=== PATIENT | male | born 1950 | race Caucasian/White ===

== ENCOUNTER 2016-09-17 11:45 | Inpatient (IN) | payer OTHER ==
[2016-09-17] MEDS ORDERED: SODIUM CHLORIDE 1,000 ML IV ONE (12:43)
--- NOTE | 2016-09-17 13:09 | PDOC ---
History of Present Illness - General History Source: Patient - History of Present Illness Initial Comments: 09/17/16 13:13 The patient is a year-old man with a significant past medical history of hypertension, hypercholesterolemia, coronary artery disease, atrial fibrillation (on Pradaxa) status post 2 stents and recent shingles diagnosis who was sent to the emergency department by his primary care physician, Dr. Lindsay Huston to rule ot possible Zoster. No fever, chills. Patient states that his symptoms started on August 17 when he noticed a rash on the back of his left leg with associated nerve shooting pain. Patient sought evaluation with a Farm Management Teacher, who diagnosed him with Zoster and started him on valtrex. He admits compliance with Valtrex and his symptoms resolved. He stated that a few weeks ago, he experienced similar symptoms of nerve pain down his left leg. He denies any rash. He states that for the past couple of weeks, his symptoms have been intermittent and occasionally on both legs with associated weakness to the point where he drags his legs. He now states that his shoulders, arms and hands feel weak and are painful with minima movement. No fall, trauma. No associated headache, changes in strength and sensations to his extremities, lightheadedness , dizziness, palpitations, abdominal pain, nausea, vomiting, diarrhea. <Anjali Monique - Last Filed: 09/17/16 14:11> <Kemar Rodriguez - Last Filed: 09/17/16 14:52> - General Chief Complaint: Pain Stated Complaint: (PCP SENT) ADMIT, R/O ZOSTER MYELITIS Time Seen by Provider: 09/17/16 12:09 Past History <Anjali Monique - Last Filed: 09/17/16 14:11> - Past Medical History Cardiac Disorders: Yes (afib, CAD, 2 Stents) HTN: Yes - Surgical History Cardiac Surgery: Yes (2 stents) - Psycho/Social/Smoking Cessation Hx Suicidal Ideation: No Smoking History: Unknown if ever smoked Information on smoking cessation initiated: No Hx Alcohol Use: No Drug/Substance Use Hx: No Substance Use Type: None <Kemar Rodriguez - Last Filed: 09/17/16 14:52> - Past Medical History Allergies/Adverse Reactions: Allergies Allergy/AdvReac Type Severity Reaction Status Date / Time No Known Allergies Allergy Verified 09/17/16 11:54 Home Medications: Ambulatory Orders Aspirin [ASA -] 81 mg PO DAILY 09/17/16 Atorvastatin Calcium [Lipitor] 10 mg PO HS 09/17/16 Clopidogrel Bisulfate [Plavix -] 75 mg PO DAILY 09/17/16 Colesevelam HCl [Welchol (Nf)] 3,750 mg PO DAILY 09/17/16 Hydrochlorothiazide [Hctz -] 12.5 mg PO DAILY 09/17/16 Lisinopril [Prinivil] 5 mg PO DAILY 09/17/16 Metoprolol Tartrate [Lopressor -] 25 mg PO BID 09/17/16 Review of Systems - Review of Systems Constitutional: No: Chills, Fever HEENTM: No: Recent change in vision Respiratory: No: Shortness of Breath Cardiac (ROS): No: Chest Pain ABD/GI: No: Vomiting Musculoskeletal: Yes: Joint Pain, Muscle Pain Integumentary: Yes: Rash Neurological: No: Headache, Seizure All Other Systems: Reviewed and Negative <Kemar Rodriguez - Last Filed: 09/17/16 14:52> *Physical Exam - Vital Signs Last Vital Signs Temp Pulse Resp BP Pulse Ox 98.1 F 68 17 135/77 99 09/17/16 11:52 09/17/16 11:52 09/17/16 11:52 09/17/16 11:52 09/17/16 11:52 - Physical Exam Comments: 09/17/16 13:13 GENERAL: The patient is awake, alert, and fully oriented, in no acute distress. HEAD: Normal with no signs of trauma. EYES: Pupils equal, round and reactive to light, extraocular movements intact, sclera anicteric, conjunctiva clear with no pallor. ENT: Ears normal, nares patent, oropharynx clear without exudates. Moist mucous membranes. NECK: Normal range of motion, supple without lymphadenopathy, JVD, or masses. LUNGS: Breath sounds equal, clear to auscultation bilaterally. No wheeze/ crackles. HEART: Regular rate and rhythm, normal S1 and S2 without murmur or rub. ABDOMEN: Soft/nontender/nondistended. BS wnl. No guarding or rebound. No palpable masses. No hepatosplenomegaly. EXTREMITIES: Normal range of motion, no edema. No clubbing or cyanosis. No cords, erythema, or tenderness. NEUROLOGICAL: Cranial nerves II through XII grossly intact. 5/5 strength in all joints but limited by pain. Normal speech. PSYCH: Normal mood, normal affect. SKIN:There is a residual rash on the posterior aspect of the right thigh. <Anjali Monique - Last Filed: 09/17/16 14:11> - Vital Signs Last Vital Signs Temp Pulse Resp BP Pulse Ox 98.1 F 68 17 135/77 99 09/17/16 11:52 09/17/16 11:52 09/17/16 11:52 09/17/16 11:52 09/17/16 11:52 <Kemar Rodriguez - Last Filed: 09/17/16 14:52> Heart Score/ECG Review #1 ECG reviewed & interpreted by me at: 13:21 General ECG Interpretation: Sinus Rhythm, Normal Rate (74), Normal Intervals, No acute ischemic changes <Kemar Rodriguez - Last Filed: 09/17/16 14:52> ED Treatment Course - LABORATORY CBC & Chemistry Diagram: 09/17/16 13:31 09/17/16 13:31 - RADIOLOGY Radiograph Interpretation: 09/17/16 14:11 EXAM: RAD/CHEST X-RAY PORTABLE IMPRESSION: A rotated and lordotic AP portable view of the chest shows normal sized heart with normal vascularity. The lung grhaam are clear. There is mild unfolding of the aorta and elevation of the right hemidiaphragm. EXAM: CT/HEAD CT WITHOUT CONTRAST IMPRESSION: A noncontrast CT scan of the brain was performed. There is mild-to- moderate volume loss and ventricular dilatation. Probable minimal chronic microvascular ischemic changes are present No gross mass lesion, focal infarct or intracranial hemorrhage is seen. Visualized paranasal sinuses and mastoid air cells are well aerated. Partially included 6 mm retention cyst versus polyp in the left maxillary antrum, medially. Calcification of the cavernous carotid arteries are noted. The calvarium is intact . <Anjali Monique - Last Filed: 09/17/16 14:11> - LABORATORY CBC & Chemistry Diagram: 09/17/16 13:31 09/17/16 13:31 - RADIOLOGY Radiology Studies Ordered: Category Date Time Status HEAD CT WITHOUT CONTRAST [CT] Stat CT Scan 09/17/16 12:43 Ordered CHEST X-RAY PORTABLE* [RAD] Stat Radiology 09/17/16 12:43 Ordered <Kemar Rodriguez - Last Filed: 09/17/16 14:52> Medical Decision Making - Medical Decision Making 09/17/16 13:01 A portion of this note was documented by scribe services under my direction. I have reviewed the details of the note, within reason, and agree with the documentation with the following case summary and management plan written by me. 65-year-old male with history of hypertension, high cholesterol, CAD status post stents, atrial fibrillation sent from Dr. Huston's office with varying and progressive motor and neuro complaints. Patient was diagnosed with right leg shingles on 08/17, had incomplete course of Valtrex and over the last 3 weeks has had waxing and waning pain to his left leg, and now bilateral upper extremities over the last week. No paralysis, no sensory deficit, but reports pain with range of motion and weakness secondary to pain. No other rash, the initial zoster rash has been resolving. No headaches or fevers or chills, no back pain, no other neuro complaints. Vital signs normal. Seated in stretcher, well-appearing, no acute distress. Resolving shingles rash in the posterior right thigh FROM with full strength LUE (hand 4/5) and LLE. RUE and RLE with FROM and full strength but limited 2/2 pain. 65-year-old male with waxing and waning pain/limited range of motion of all 4 extremities over the last few weeks following a zoster rash. The patient was called in to the ED by Dr. Huston, with greatest concern for zoster myelitis. Case discussed upon arrival with Dr. Hogan. Presentation appears to be more consistent with a myositis, ? PMR, in the absence of focal neuro deficit. plan as follows: labs including esr/crp/cpk ct head hold acyclovir for now admit 09/17/16 14:51 wbc 13, ESR pending. chemistries pending, CRP elevated. UA normal. CT head without acute pathology, some increased ventricular dilatation. CXR clear. Proceeding with admission to inpatient med/surg Dr. Huston. <Kemar Rodriguez - Last Filed: 09/17/16 14:52> *DC/Admit/Observation/Transfer - Attestations Scribe Attestion: 09/17/16 13:14 Documentation prepared by Anjali Monique, acting as medical assistant ob gyn for Kemar Rodriguez MD. <Anjali Monique - Last Filed: 09/17/16 14:11> - Discharge Dispostion Admit: Yes <Kemar Rodriguez - Last Filed: 09/17/16 14:52> Diagnosis at time of Disposition: Myalgia - Discharge Dispostion Condition at time of disposition: Fair - Referrals
[2016-09-17 13:54] LABS: BASOPHIL 0.5 % (0-2.0); EOSINOPHIL 0.4 % (0-4.5); MCH 30.6 pg (25.7-33.7); MCHC 33.2 g/dl (32.0-35.9); MEAN CELL VOLUME 92.3 fl (80-96); MEAN PLT VOLUME 7.9 fl (7.5-11.1); NEUTROPHILS 80.8 % (42.8-82.8); PLATELET COUNT 327 K/MM3 (134-434); RDW 12.5 % (11.9-15.9)
[2016-09-17 14:06] LABS: URINE APPEARANCE CLEAR; URINE BILIRUBIN NEGATIVE (NEGATIVE); URINE COLOR LTYELLOW; URINE GLUCOSE (UA) NEGATIVE (NEGATIVE); URINE KETONE NEGATIVE (NEGATIVE); URINE LEUK ESTERASE NEGATIVE (NEGATIVE); URINE NITRITE NEGATIVE (NEGATIVE); URINE PROTEIN NEGATIVE (NEGATIVE); URINE UROBILINOGEN NEGATIVE E.U./dl (0.2-1.0)
[2016-09-17 14:14] LABS: INR 1.23 (0.82-1.09); PROTHROMBIN TIME (PATIENT) 13.6 SEC (9.98-11.88)
[2016-09-17 14:20] LABS: ALBUMIN 3.6 g/dl (3.4-5.0); ANION GAP 10 (8-16); CALCIUM 9.1 mg/dL (8.5-10.1); CO2 27 mmol/L (21-32); COCKROFT - GAULT 72.81; CREATININE 1.2 mg/dL (0.7-1.3); GLUCOSE,RANDOM 95 mg/dL (74-106); SGOT/AST 20 U/L (15-37); SGPT/ALT 24 U/L (12-78)
[2016-09-17 14:23] LABS: ALK PHOS 93 U/L (45-117); BILIRUBIN,TOTAL 0.5 mg/dL (0.2-1.0); TOT PROT 7.8 g/dl (6.4-8.2); TROPONIN I < 0.02 ng/ml (0.00-0.05)
[2016-09-17 14:25] LABS: URINE BLOOD 1+ (NEGATIVE)
[2016-09-17 14:29] LABS: GRANULAR CASTS 1 /lpf; URINE MUCUS RARE; URINE RBC 1 /hpf (0-3); URINE WBC <1 /hpf (3-5)
[2016-09-17 16:01] VITALS: BMI 30.3
[2016-09-17] MEDS ORDERED: BENZOCAINE/MENTH/CETYLPYRD CL 1 EACH LOZENGE MM PRN (16:54)
[2016-09-17] MEDS: ACETAMINOPHEN 325 MG TABLET (FP) PO PRN (17:19)
--- NOTE | 2016-09-17 19:57 | HP ---
Admitting History and Physical - Admission History of Present Illness: 65 year-old man with a significant PMH of HTN, HLD, CAD, atrial fibrillation ( on Pradaxa) status post 2 stents placements. Patient was recently diagnosed with Herpes Zoster by eeo officer and given Valtrex/ Gabapentin / mobic -- He admits did not complete Valtrex since the skin lesion dried up fairly quickly. He showed up at office with complaint of weakness to right hand which subsided and then appeared on left hand. He also reports patchy sites / areas of parethesia which are not consistent. He reports dropping glasses of water due to inability to grasp properly / also noted decrease in fine motor ability / unsteady gait requiring assistance to get up and assist of one to ambulate / needed assistance for dressing ( had same pair of socks for 2 days -had been unable to change them ) Patient states that his symptoms started on August 17 when he noticed a rash on the back of his leg for which he was dx with HZ and treated. He stated that a few weeks ago, he experienced similar symptoms of nerve pain down his left leg. 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 History of Recent Travel: No Home Medications - Allergies Allergies/Adverse Reactions: Allergies Allergy/AdvReac Type Severity Reaction Status Date / Time No Known Allergies Allergy Verified 09/17/16 11:54 - Home Medications Home Medications: Ambulatory Orders Aspirin [ASA -] 81 mg PO DAILY 09/17/16 Atorvastatin Calcium [Lipitor] 10 mg PO HS 09/17/16 Clopidogrel Bisulfate [Plavix -] 75 mg PO DAILY 09/17/16 Colesevelam HCl [Welchol (Nf)] 3,750 mg PO DAILY 09/17/16 Hydrochlorothiazide [Hctz -] 12.5 mg PO DAILY 09/17/16 Lisinopril [Prinivil] 5 mg PO DAILY 09/17/16 Metoprolol Tartrate [Lopressor -] 25 mg PO BID 04/19/17 Review of Systems - Review of Systems Constitutional: reports: No Symptoms Eyes: reports: No Symptoms HENT: reports: No Symptoms Neck: reports: No Symptoms, Decreased ROM Cardiovascular: reports: No Symptoms Respiratory: reports: No Symptoms Gastrointestinal: reports: Abdominal Pain, Bloating Genitourinary: reports: No Symptoms Breasts: reports: No Symptoms Reported Musculoskeletal: reports: Decreased ROM, Extremity Pain, Muscle Weakness, Other (paresthesia) Integumentary: reports: Rash Neurological: reports: Incoordination, Numbness, Parasthesia, Unsteady Gait, Weakness Endocrine: reports: No Symptoms Hematology/Lymphatic: reports: No Symptoms Psychiatric: reports: No Symptoms Physical Examination Vital Signs: Vital Signs Temperature 98.6 F 09/17/16 18:00 Pulse Rate 87 09/17/16 18:00 Respiratory Rate 20 09/17/16 18:00 Blood Pressure 146/74 09/17/16 18:00 O2 Sat by Pulse Oximetry (%) 90 L 09/17/16 16:17 Constitutional: Yes: Well Nourished, No Distress, Calm Eyes: Yes: WNL, Conjunctiva Clear, EOM Intact HENT: Yes: WNL, Atraumatic, Normocephalic Neck: Yes: WNL, Supple, Trachea Midline Cardiovascular: Yes: WNL, Regular Rate and Rhythm Respiratory: Yes: WNL, CTA Bilaterally Gastrointestinal: Yes: WNL, Normal Bowel Sounds, Soft Renal/: Yes: WNL Breast(s): Yes: WNL Musculoskeletal: Yes: Joint Stiffness, Muscle Pain, Muscle Weakness Edema: No Peripheral Pulses: Left Radial: 2+, Right Radial: 2+, Left Doralis Pedis: 2+, Right Dorsalis Pedis: 2+, Left Femoral: 2+, Right Femoral: 2+ Integumentary: Yes: Rash (posterior right leg dry) Neurological: Yes: Alert, Oriented, Numbness, Paresthesia, Tingling, Unsteady Gait, Weakness, Other (left hand resource center teacher weaker than right) Psychiatric: Yes: WNL, Alert, Oriented Problem List - Problems (1) Herpes zoster complication Assessment/Plan: patient with hx of Zoster diagnosed by Dermatology 08/17/16 will need to consider possible complications --myelitis --peripheral nerve palsies --aseptic meningitis --encephalitis --no clinical finding will need neurology assment if diagnosis of above findings, will need further work up to rule out immunodeficiency. Code(s): B02.8 - ZOSTER WITH OTHER COMPLICATIONS (2) Myelitis Assessment/Plan: discussed with Neurology await clinical evaluation if agreed will start acyclovir IV maintain well hydrated Code(s): G04.91 - MYELITIS, UNSPECIFIED (3) CAD (coronary artery disease) Assessment/Plan: stable continue meds Code(s): I25.10 - ATHSCL HEART DISEASE OF [place] CORONARY ARTERY W/O ANG PCTRS (4) Atrial fibrillation Assessment/Plan: will discuss with Neurology if need for LP hold plavix heparin SQ consider NOAC continue metoprolol Code(s): I48.91 - UNSPECIFIED ATRIAL FIBRILLATION (5) HTN (hypertension) Code(s): I10 - ESSENTIAL (PRIMARY) HYPERTENSION
[2016-09-17] MEDS ORDERED: ACYCLOVIR INJECTION 300 MG in DEXTROSE 5%-WATER - 100 ML IVPB SCH (20:15)
--- NOTE | 2016-09-17 20:20 | CON.NEURO ---
Consult Consult Specialty:: Neurology - History of Present Illness History of Present Illness: 65 year-old man with a significant PMH of HTN, HLD, CAD, atrial fibrillation ( on Pradaxa) status post 2 stents placements. Patient was recently diagnosed with Herpes Zoster by coiled tubing operator ( 08/17) and given Valtrex/ Gabapentin / mobic -- did not complete Valtrex since the skin lesion dried up. Over next few weeks noticed dragging left leg and then progressed to shoulder pain and pain in grasping and lifting shoulders. No clear numbness and tingling. no major back pain. N Schwarz , anabaptist pain, jaw claudication. most recently feels pain in his R groin. no new rash. no new RX. no fevers or weight loss. 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 History of Recent Travel: No Home Medications - Allergies Allergies/Adverse Reactions: Allergies Allergy/AdvReac Type Severity Reaction Status Date / Time No Known Allergies Allergy Verified 09/17/16 11:54 - Home Medications Home Medications: Ambulatory Orders Aspirin [ASA -] 81 mg PO DAILY 09/17/16 Atorvastatin Calcium [Lipitor] 10 mg PO HS 09/17/16 Clopidogrel Bisulfate [Plavix -] 75 mg PO DAILY 09/17/16 Colesevelam HCl [Welchol (Nf)] 3,750 mg PO DAILY 09/17/16 Hydrochlorothiazide [Hctz -] 12.5 mg PO DAILY 09/17/16 Lisinopril [Prinivil] 5 mg PO DAILY 09/17/16 Metoprolol Tartrate [Lopressor -] 25 mg PO BID 09/17/16 Physical Exam-Neuro Vital Signs: Vital Signs Temperature 98.6 F 09/17/16 18:00 Pulse Rate 87 09/17/16 18:00 Respiratory Rate 20 09/17/16 18:00 Blood Pressure 146/74 09/17/16 18:00 O2 Sat by Pulse Oximetry (%) 90 L 09/17/16 16:17 Constitutional: Yes: Well Nourished Labs: INR, PTT INR 1.23 (0.82-1.09) H 09/17/16 13:31 - Neuro Exam Level Of Consciousness: Yes: Alert, Oriented to Person (follows 3 steps, no nuchal rigidity , no focal weakness with best effort, ++myalgic pain in legs and arms, limited ROM elevating shoudlers, though best effort 5/5. no sensory levels or sensory deficit; reflexes 2+ in UE, 2 +patelalr, achilles 1+, plantars down ) NIH Stroke Scale - Total Score NIH Stroke Scale Score: 0 Problem List - Problems (1) Atrial fibrillation Code(s): I48.91 - UNSPECIFIED ATRIAL FIBRILLATION (2) CAD (coronary artery disease) Code(s): I25.10 - ATHSCL HEART DISEASE OF [place] CORONARY ARTERY W/O ANG PCTRS (3) HTN (hypertension) Code(s): I10 - ESSENTIAL (PRIMARY) HYPERTENSION (4) Herpes zoster complication Code(s): B02.8 - ZOSTER WITH OTHER COMPLICATIONS (5) Myalgia Code(s): M79.1 - MYALGIA Assessment/Plan 65 year-old man with a significant PMH of HTN, HLD, CAD, atrial fibrillation ( on Pradaxa) status post 2 stents placements, with recent zoster ( R leg L5/s1 resolved) with subacute onset of myalgic pains , no clear diurnal fluctuation; no formal weakness on exam or evidence of long tract Sx,--no signs myelitis, radiculopathy or mononeuritis or myopathy. . ++ESR and CRP--suggestive of POLYMYALGIA RHEUMATICA vs rheumatic condition. no fevers so doubt infectious etiology. at this juncture no signs of temporal arteritis. Would get RHEUM input and start steroids in expeditious manner. Will get spinal imaging to ensure no diskitis, will get scans C spine /LS spine Dr Hogan
[2016-09-17] MEDS ORDERED: ZOLPIDEM TARTRATE 5 MG TABLET PO PRN (20:41)
[2016-09-17] MEDS: DEXTROSE 5%-0.45% SALINE 1,000 ML IV SCH (20:51)
[2016-09-17] MEDS: HEPARIN NA (PORCINE) 5,000 UNITS/ML 1ML VIAL SQ SCH (22:18)
[2016-09-17] MEDS: METOPROLOL TARTRATE 25 MG TABLET (FP) PO SCH (22:18)
--- NOTE | 2016-09-18 00:39 | PN ---
Progress Note (short form) - Note Progress Note: addendum Appreciate neurology consult / Case discussed with Dr Hogan Clinical finding not supportive of Myelitis labs reviewed and discussed high elevations of CRP (10.7) & ESR (102) additional work up for autoimmune/rhematological process - labs ordered Consult with Dr Hinton requested Consult with ID also requested although not typical of infectious process Problem List - Problems (1) Herpes zoster complication Code(s): B02.8 - ZOSTER WITH OTHER COMPLICATIONS (2) Myelitis Code(s): G04.91 - MYELITIS, UNSPECIFIED (3) CAD (coronary artery disease) Code(s): I25.10 - ATHSCL HEART DISEASE OF [place] CORONARY ARTERY W/O ANG PCTRS (4) Atrial fibrillation Code(s): I48.91 - UNSPECIFIED ATRIAL FIBRILLATION (5) HTN (hypertension) Code(s): I10 - ESSENTIAL (PRIMARY) HYPERTENSION
[2016-09-18] MEDS: ACETAMINOPHEN 325 MG TABLET (FP) PO PRN (04:03)
[2016-09-18] MEDS: DEXTROSE 5%-0.45% SALINE 1,000 ML IV SCH ×3 (05:53→21:56)
[2016-09-18] MEDS: GABAPENTIN 100 MG CAPSULE (FP) PO SCH ×3 (06:21→22:02)
[2016-09-18] MEDS: LISINOPRIL 5 MG TABLET (FP) PO SCH (09:50)
[2016-09-18] MEDS: METOPROLOL TARTRATE 25 MG TABLET (FP) PO SCH ×2 (09:50→22:01)
[2016-09-18] MEDS: HEPARIN NA (PORCINE) 5,000 UNITS/ML 1ML VIAL SQ SCH ×2 (09:50→21:59)
--- NOTE | 2016-09-18 10:55 | CONSULT ---
Consultation: REQUESTING PROVIDER: Dr. Huston CONSULT REQUEST: We have been asked to medically evaluate this patient for ( specify). HISTORY OF PRESENT ILLNESS: Patient is a 65 year old male with a PMHx of HTN, HLD, CAD s/p two stents, A.fib (On Pradaxa), and recent shingles diagnosed 08/17/2016 and did not complete his Valtrex who was sent by his PCP due to pain and weakness that first began in his bilateral legs intermittently and has now started in his upper extremities. Patient reports pain and stiffness of his bilateral shoulders, arms, and hands. He states he is unable to hold a cup and started to drag his left leg because he was unable to walk on it. When asking the patient, he states he is weak because of the pain. Otherwise, patient denies any recent trauma, falls. He denies headaches, neck pain and stiffness, numbness, tingling, jaw pain, weight loss, chest pain, palpitation, shortness of breath, abdominal pain. Denies Recent travel. Last time he traveled was last December to [place] Denies sick contacts Denies recent antibiotic use Denies recent upper respiratory infection or GI infection Denies any recent hiking or outdoor activity. 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 PSH: 2 Stents Social History: Former smoker, denies alcohol or drugs Allergies: NKDA REVIEW OF SYSTEMS: CONSTITUTIONAL: Absent: fever, chills, diaphoresis, generalized weakness, malaise, loss of appetite, weight change HEENT: Absent: rhinorrhea, nasal congestion, throat pain, throat swelling, difficulty swallowing, mouth swelling, ear pain, eye pain, visual changes CARDIOVASCULAR: Absent: chest pain, syncope, palpitations, irregular heart rate, lightheadedness , peripheral edema RESPIRATORY: Absent: cough, shortness of breath, dyspnea with exertion, orthopnea, wheezing, stridor, hemoptysis GASTROINTESTINAL: Absent: abdominal pain, abdominal distension, nausea, vomiting, diarrhea, constipation, melena, hematochezia GENITOURINARY: Absent: dysuria, frequency, urgency, hesitancy, hematuria, flank pain, genital pain MUSCULOSKELETAL: myalgia Absent: arthralgia, joint swelling, back pain, neck pain SKIN: rash Absent: itching, pallor HEMATOLOGIC/IMMUNOLOGIC: Absent: easy bleeding, easy bruising, lymphadenopathy, frequent infections ENDOCRINE: Absent: unexplained weight gain, unexplained weight loss, heat intolerance, cold intolerance NEUROLOGIC: Absent: headache, focal weakness or paresthesias, dizziness, unsteady gait, seizure, mental status changes, bladder or bowel incontinence PSYCHIATRIC: Absent: anxiety, depression, suicidal or homicidal ideation, hallucinations. PHYSICAL EXAMINATION Vital Signs - 24 hr 09/17/16 09/17/16 09/17/16 15:51 16:17 18:00 Temperature 99.0 F 98.6 F Pulse Rate 88 87 Respiratory 18 20 Rate Blood Pressure 126/65 146/74 O2 Sat by Pulse 90 L Oximetry (%) 09/17/16 09/18/16 09/18/16 21:00 07:01 08:23 Temperature 98.3 F 98.7 F Pulse Rate 82 69 Respiratory 20 20 18 Rate Blood Pressure 124/65 129/65 O2 Sat by Pulse 95 Oximetry (%) 09/18/16 08:51 Temperature Pulse Rate Respiratory Rate Blood Pressure O2 Sat by Pulse 95 Oximetry (%) GENERAL: Awake, alert, and fully oriented, in no acute distress. EYES: Sclera anicteric, conjunctiva clear. THROAT: Oropharynx clear without exudates. Moist mucous membranes. NECK: No Nuchal Rigidity LUNGS: Breath sounds equal, clear to auscultation bilaterally. No wheezes, and no crackles. No accessory muscle use. HEART: Regular rate and rhythm, normal S1 and S2 without murmur, rub or gallop. ABDOMEN: Soft, Obese, nontender, not distended, no guarding, no rebound. No hepatomegaly or splenomegaly. EXTREMITIES: No peripheral edema. NEURO: Bilateral upper and lower extremity myalgia with limited range of motion throughout extremities. Motor strength 4/5 throughout. No sensory deficit. SKIN: Residual rash of posterior right thigh Active Medications Generic Name Dose Route Start Last Admin Trade Name Freq PRN Reason Stop Dose Admin Acetaminophen 650 mg 09/17/16 16:55 09/18/16 04:03 Tylenol - PO 650 mg Q4H PRN Administration PAIN Atorvastatin Calcium 20 mg 09/18/16 22:00 Lipitor - PO HS ANGELES Benzocaine/Menthol 1 each 09/17/16 16:54 09/17/16 17:52 Cepacol Lozenge - MM 1 each Q2H PRN Administration SORE THROAT Gabapentin 100 mg 09/18/16 06:15 09/18/16 06:21 Neurontin - PO 100 mg TID ANGELES Administration Heparin Sodium (Porcine) 5,000 unit 09/17/16 22:00 09/18/16 09:50 Heparin - SQ 5,000 unit BID ANGELES Administration Dextrose/Sodium Chloride 1,000 mls @ 125 mls/hr 09/17/16 20:15 09/18/16 05:53 D5-1/2ns - IV 125 mls/hr ASDIR ANGELES Administration Lisinopril 5 mg 09/18/16 10:00 09/18/16 09:50 Prinivil PO 5 mg DAILY ANGELES Administration Metoprolol Tartrate 25 mg 09/17/16 22:00 09/18/16 09:50 Lopressor - PO 25 mg BID ANGELES Administration Zolpidem Tartrate 5 mg 09/17/16 20:41 09/17/16 22:18 Ambien - PO 09/18/16 20:40 5 mg HS PRN Administration INSOMNIA ASSESSMENT/PLAN: Patient is a 65 year old male with a PMHx of HTN, HLD, CAD s/p stents and recent shingles on 07/2016 who presented for upper and lower extremity pain and weakness. Patient was found to have elevated ESR and CRP. Myalgia and weakness of bilateral extremities -Secondary to possible Polymyalgia Rheumatica or post inflammatory process such as transverse myelitis (HVZ or GBS) -Rheumatology consult placed -Rheumatology panel ordered -Neurology consult appreciated -MRI of cervical and lumbar spine ordered by Neuro -Quant gold ordered -Blood cultures and lyme titers -Urine cultures -Would recmmend LP for cultures to rule out any possible infectious cause. Dispo: We will continue to follow the patient. Thank you for this consultative opportunity. Visit type - Emergency Visit Emergency Visit: Yes ED Registration Date: 09/17/16 Care time: The patient presented to the Emergency Department on the above date and was hospitalized for further evaluation of their emergent condition. - New Patient This patient is new to me today: Yes Date on this admission: 09/18/16 - Critical Care Critical Care patient: No
--- NOTE | 2016-09-18 11:26 | PN ---
Progress Note (short form) - Note Progress Note: ID Case reviewed and discussed with neurology. I agree that the differential diagnosis of weakness in the upper and lower extremities along with the elevated ESR and CRP do suggest the possibility of polymyalgia rheumatica. However the recent history of shingle also raises the question of a post inflammatory process such as transverse myelitis related to HVZ GBS. Last travel Dec 2015 [place] [facility] consult Blood cultures x 2 Lyme urine c/s Quant gold JUD rheumatoid factor MRI cervical and lumbar spine Depending on clinical suspicion for PMR by rheumatology and neurology consider LP for cultures cell count protein viral markers PCR Fay HENDERSON Problem List - Problems (1) Herpes zoster complication Code(s): B02.8 - ZOSTER WITH OTHER COMPLICATIONS (2) Polymyalgia rheumatica Code(s): M35.3 - POLYMYALGIA RHEUMATICA
--- NOTE | 2016-09-18 12:29 | EKG ---
Test Reason : Blood Pressure : / mmHG Vent. Rate : 074 BPM Atrial Rate : 074 BPM P-R Int : 172 ms QRS Dur : 080 ms QT Int : 348 ms P-R-T Axes : 062 051 035 degrees QTc Int : 386 ms NORMAL SINUS RHYTHM POSSIBLE ANTERIOR INFARCT , AGE UNDETERMINED ABNORMAL ECG WHEN COMPARED WITH ECG OF 12-SEP-2000 09:35, NONSPECIFIC T WAVE ABNORMALITY NOW EVIDENT IN ANTERIOR LEADS Confirmed by MADISON HENDERSON, CHANTEL ([id number]) on 09/18/2016 12:29:35 PM Referred By: Confirmed By:CHANTEL WALLACE MD
--- NOTE | 2016-09-18 17:25 | PN ---
Progress Note (short form) - Note Progress Note: HPI: 65 year-old man with a significant PMH of HTN, HLD, CAD, atrial fibrillation (on Pradaxa) status post 2 stents placements. Patient was recently diagnosed with Herpes Zoster by inspector process ( 08/17) and given Valtrex/ Gabapentin / mobic -- did not complete Valtrex since the skin lesion dried up. Over next few weeks noticed dragging left leg and then progressed to shoulder pain and pain in grasping and lifting shoulders. No clear numbness and tingling. no major back pain. N Schwarz , gnosticist pain, jaw claudication. most recently feels pain in his R groin. no new rash. no new RX. no fevers or weight loss. FU : still with limited ROM, no weakness spoke to RHEUM and ID Home Medications: Ambulatory Orders Aspirin [ASA -] 81 mg PO DAILY 09/17/16 Atorvastatin Calcium [Lipitor] 10 mg PO HS 09/17/16 Clopidogrel Bisulfate [Plavix -] 75 mg PO DAILY 09/17/16 Colesevelam HCl [Welchol (Nf)] 3,750 mg PO DAILY 09/17/16 Hydrochlorothiazide [Hctz -] 12.5 mg PO DAILY 09/17/16 Lisinopril [Prinivil] 5 mg PO DAILY 09/17/16 Metoprolol Tartrate [Lopressor -] 25 mg PO BID 09/17/16 Physical Exam-Neuro Vital Signs: NL Constitutional: Yes: Well Nourished Labs: ESR /CRP inc INR, PTT INR 1.23 (0.82-1.09) H 09/17/16 13:31 - Neuro Exam Level Of Consciousness: Yes: Alert, Oriented to Person (follows 3 steps, no nuchal rigidity , no focal weakness with best effort, ++myalgic pain in legs and arms, limited ROM elevating shoudlers, though best effort 5/5. no sensory levels or sensory deficit; reflexes 2+ in UE, 2 +patelalr, achilles 1+, plantars down ) NIH Stroke Scale - Total Score NIH Stroke Scale Score: 0 Assessment/Plan 65 year-old man with a significant PMH of HTN, HLD, CAD, atrial fibrillation ( on Pradaxa) status post 2 stents placements, with recent zoster ( R leg L5/s1 resolved) with subacute onset of myalgic pains , no clear diurnal fluctuation; no formal weakness on exam or evidence of long tract Sx,--no signs myelitis, radiculopathy or mononeuritis or myopathy. . ++ESR and CRP--suggestive of POLYMYALGIA RHEUMATICA vs rheumatic condition. no fevers so doubt infectious etiology. at this juncture no signs of temporal arteritis. RHEUM labs P ; spoke to Dr AG who agrees suspicious for rheumatic conditions , ? post viral await spinal imaging -C spine /LS spine Dr Hogan Problem List - Problems (1) Atrial fibrillation Code(s): I48.91 - UNSPECIFIED ATRIAL FIBRILLATION (2) CAD (coronary artery disease) Code(s): I25.10 - ATHSCL HEART DISEASE OF [place] CORONARY ARTERY W/O ANG PCTRS (3) HTN (hypertension) Code(s): I10 - ESSENTIAL (PRIMARY) HYPERTENSION (4) Herpes zoster complication Code(s): B02.8 - ZOSTER WITH OTHER COMPLICATIONS (5) Myalgia Code(s): M79.1 - MYALGIA
[2016-09-18] MEDS: INDOMETHACIN 50 MG CAPSULE PO SCH ×2 (18:39→18:40)
--- NOTE | 2016-09-18 19:27 | CONSULT ---
Consult Consult Specialty:: Rheumatology - History of Present Illness History of Present Illness: 65 year old male with PMH of HTN, HLD, CAD, atrial fibrillation (on Pradaxa) status post 2 stents placements and recent episode of Herpes Zoster, admitted with acute arthritis. HPI. On 08/17/16 the patient developed a rash in the posterior aspect of the right thigh and calf. He was diagnosed with herpes Zoster by a public relations intern and started on Valtrex which he took for 1 week. The rash improved, however one week later he developed pain in the left knee followed by progressive involvement of other joints including shoulders, wrists, hands, hips and the right knee. The pain was severe resulting in significant limitation in his activities. The patient reports weakness, however his limitation was probably related to the joint pain. He denies fever, other skin rash orshortness of breath. There has been no improvement since he was admitted to the hospital. Since admission he has not have fev er. ESR was 102 and CRP 10.7. 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 History of Recent Travel: No Home Medications - Allergies Allergies/Adverse Reactions: Allergies Allergy/AdvReac Type Severity Reaction Status Date / Time No Known Allergies Allergy Verified 09/17/16 11:54 - Home Medications Home Medications: Ambulatory Orders Aspirin [ASA -] 81 mg PO DAILY 09/17/16 Atorvastatin Calcium [Lipitor] 10 mg PO HS 09/17/16 Clopidogrel Bisulfate [Plavix -] 75 mg PO DAILY 09/17/16 Colesevelam HCl [Welchol (Nf)] 3,750 mg PO DAILY 09/17/16 Hydrochlorothiazide [Hctz -] 12.5 mg PO DAILY 09/17/16 Lisinopril [Prinivil] 5 mg PO DAILY 09/17/16 Metoprolol Tartrate [Lopressor -] 25 mg PO BID 09/17/16 Review of Systems - Review of Systems Constitutional: reports: Malaise Eyes: reports: No Symptoms HENT: reports: No Symptoms Neck: reports: No Symptoms Cardiovascular: reports: No Symptoms Respiratory: reports: No Symptoms Gastrointestinal: reports: No Symptoms Musculoskeletal: reports: Other (See HPI) Integumentary: reports: Other (See HPI) Physical Exam Vital Signs: Vital Signs Temperature 99.2 F 09/18/16 19:11 Pulse Rate 77 09/18/16 19:11 Respiratory Rate 18 09/18/16 19:11 Blood Pressure 115/71 09/18/16 19:11 O2 Sat by Pulse Oximetry (%) 95 09/18/16 09:00 Constitutional: Yes: Severe Distress Eyes: Yes: WNL HENT: Yes: WNL Neck: Yes: WNL Cardiovascular: Yes: WNL Respiratory: Yes: WNL Gastrointestinal: Yes: WNL Musculoskeletal: Yes: Other (Three tender and 11 swollen joints (The right wrist was tender and swollen. Ther right 1st, 2nd, 3rd and 4th PIPs were swollen. The left 3rd MCP was tender and swollen. All the PIPs in the left hand were swollen. The right hip was tender)) Labs: Laboratory Tests 09/17/16 09/17/16 09/17/16 13:31 13:31 13:31 WBC 13.0 H RBC 4.81 Hgb 14.8 Hct 44.4 MCV 92.3 MCHC 33.2 RDW 12.5 Plt Count 327 MPV 7.9 Neutrophils % 80.8 Lymphocytes % 6.8 L Monocytes % 11.5 H Eosinophils % 0.4 Basophils % 0.5 ESR Sodium 133 L Potassium 4.3 Chloride 96 L Carbon Dioxide 27 Anion Gap 10 BUN 18 Creatinine 1.2 Creat Clearance w eGFR > 60 Random Glucose 95 Calcium 9.1 Total Bilirubin 0.5 AST 20 ALT 24 Alkaline Phosphatase 93 Creatine Kinase 135 Troponin I < 0.02 C-Reactive Protein Total Protein 7.8 Albumin 3.6 Urine Color Ltyellow Urine Appearance Clear Urine pH 5.0 Ur Specific [place] 1.012 Urine Protein Negative Urine Glucose (UA) Negative Urine Ketones Negative Urine Blood 1+ H Urine Nitrite Negative Urine Bilirubin Negative Urine Urobilinogen Negative Ur Leukocyte Esterase Negative Urine RBC 1 Urine WBC <1 Granular Casts 1 Urine Mucus Rare 09/17/16 09/17/16 13:31 13:31 WBC RBC Hgb Hct MCV MCHC RDW Plt Count MPV Neutrophils % Lymphocytes % Monocytes % Eosinophils % Basophils % ESR 102 H Sodium Potassium Chloride Carbon Dioxide Anion Gap BUN Creatinine Creat Clearance w eGFR Random Glucose Calcium Total Bilirubin AST ALT Alkaline Phosphatase Creatine Kinase Troponin I C-Reactive Protein 10.7 H Total Protein Albumin Urine Color Urine Appearance Urine pH Ur Specific [place] Urine Protein Urine Glucose (UA) Urine Ketones Urine Blood Urine Nitrite Urine Bilirubin Urine Urobilinogen Ur Leukocyte Esterase Urine RBC Urine WBC Granular Casts Urine Mucus Problem List - Problems (1) Inflammatory polyarthritis Assessment/Plan: Acute inflammatory arthritis, Etiology to be determined,. Even though there is a timing relationship with episode of Herpes Zoster, it is not a known complication of the disease. The presentation is not typical of reactive arthritis. Rule out other systemic arthritis or systemic disease. Plan: I initially prescribed Indomethacin , however the patient is on Clopidrogel, therefore I discontinued the medication and started Metylprednisolone 40 mg IV /d. Serology was requested. Code(s): M06.4 - INFLAMMATORY POLYARTHROPATHY
[2016-09-18] MEDS: PANTOPRAZOLE 40 MG TABLET (FP) PO SCH (21:55)
[2016-09-18] MEDS: methylPREDNISolone NA SUCC 40 MG/1 ML VIAL IVPB SCH (21:55)
[2016-09-18] MEDS ORDERED: ATORVASTATIN CA 40 MG TABLET (FP) PO SCH (22:00)
[2016-09-18] MEDS: ATORVASTATIN CA 40 MG TABLET (FP) PO SCH (22:01)
--- NOTE | 2016-09-18 22:42 | PN ---
Progress Note (short form) - Note Progress Note: patient in bed still with painful joints and reports unable to ambulate with out assistance was given "a pill today " ( indomethacin ) which helped him ! took his pain from 8 >>6 making his joints less painful reports pain in shoulder / right worse than left / hands "stiff'" / pain in PIP to light touch Vital Signs Period Temp Pulse Resp BP Sys/Miller Pulse Ox Last 24 Hr 98.3 F-99.5 F 67-82 18-20 112-129/64-74 95-95 awake alert discussed current work up and opinin from consultants and current plans possibility of LP discussed currently on Heparin SQ >> olavix on hold Neck supple heart reg S1/S2 Lung clear ant and laterally -- painful to move about in bed abd soft non tender Exy DvT boots in place CBC, BMP 09/17/16 13:31 09/17/16 13:31 Active Medications Acetaminophen (Tylenol -) 650 mg PO Q4H PRN PRN Reason: PAIN Last Admin: 09/18/16 04:03 Dose: 650 mg Atorvastatin Calcium (Lipitor -) 20 mg PO HS [facility] Last Admin: 09/18/16 22:01 Dose: 20 mg Benzocaine/Menthol (Cepacol Lozenge -) 1 each MM Q2H PRN PRN Reason: SORE THROAT Last Admin: 09/17/16 17:52 Dose: 1 each Gabapentin (Neurontin -) 100 mg PO TID [facility] Last Admin: 09/18/16 22:02 Dose: 100 mg Heparin Sodium (Porcine) (Heparin -) 5,000 unit SQ BID [facility] Last Admin: 09/18/16 21:59 Dose: 5,000 unit Dextrose/Sodium Chloride (D5-1/2ns -) 1,000 mls @ 125 mls/hr IV ASDIR [facility] Last Admin: 09/18/16 21:56 Dose: 125 mls/hr Lisinopril (Prinivil) 5 mg PO DAILY [facility] Last Admin: 09/18/16 09:50 Dose: 5 mg Methylprednisolone Sodium Succinate (Solu-Medrol -) 40 mg IVPB DAILY [facility] Last Admin: 09/18/16 21:55 Dose: 40 mg Metoprolol Tartrate (Lopressor -) 25 mg PO BID [facility] Last Admin: 09/18/16 22:01 Dose: 25 mg Pantoprazole Sodium (Protonix -) 40 mg PO DAILY [facility] Last Admin: 09/18/16 21:55 Dose: 40 mg specialty labs all pending # acute inflammatory process S/P herpes Zoster although unlikely still need to R/O post HSV complications acute process - acute Arthritis - PMR - underlying malignancy also to be considered started on low dose IV steroids / on PPi await lab results await results of MRI # A fib plavix on hold SQ Heparin will start plavix / asa once need for LP discarded # HTN has remained stable on current medications # HLD continued on Statins Problem List - Problems (1) Inflammatory polyarthritis Code(s): M06.4 - INFLAMMATORY POLYARTHROPATHY (2) Herpes zoster complication Code(s): B02.8 - ZOSTER WITH OTHER COMPLICATIONS (3) Myelitis Code(s): G04.91 - MYELITIS, UNSPECIFIED (4) CAD (coronary artery disease) Code(s): I25.10 - ATHSCL HEART DISEASE OF [place] CORONARY ARTERY W/O ANG PCTRS (5) Atrial fibrillation Code(s): I48.91 - UNSPECIFIED ATRIAL FIBRILLATION (6) HTN (hypertension) Code(s): I10 - ESSENTIAL (PRIMARY) HYPERTENSION
[2016-09-18] MEDS: ZOLPIDEM TARTRATE 5 MG TABLET PO PRN (23:25)
[2016-09-19] MEDS: GABAPENTIN 100 MG CAPSULE (FP) PO SCH ×3 (06:30→22:40)
[2016-09-19] MEDS: PANTOPRAZOLE 40 MG TABLET (FP) PO SCH (10:21)
[2016-09-19] MEDS: LISINOPRIL 5 MG TABLET (FP) PO SCH (10:21)
[2016-09-19] MEDS: HEPARIN NA (PORCINE) 5,000 UNITS/ML 1ML VIAL SQ SCH (10:21)
[2016-09-19] MEDS: METOPROLOL TARTRATE 25 MG TABLET (FP) PO SCH ×2 (10:21→22:40)
[2016-09-19] MEDS: methylPREDNISolone NA SUCC 40 MG/1 ML VIAL IVPB SCH (10:22)
[2016-09-19] MEDS: DEXTROSE 5%-0.45% SALINE 1,000 ML IV SCH ×2 (11:36→22:36)
--- NOTE | 2016-09-19 13:25 | PN ---
Progress Note, Physician History of Present Illness: OOB in chair Feeling much better after starting steroids Able to ambulate without pain No fever/ chills Afebrile Blood c/s no growth - Current Medication List Current Medications: Active Medications Acetaminophen (Tylenol -) 650 mg PO Q4H PRN PRN Reason: PAIN Last Admin: 09/18/16 04:03 Dose: 650 mg Atorvastatin Calcium (Lipitor -) 20 mg PO HS [facility] Last Admin: 09/18/16 22:01 Dose: 20 mg Benzocaine/Menthol (Cepacol Lozenge -) 1 each MM Q2H PRN PRN Reason: SORE THROAT Last Admin: 09/17/16 17:52 Dose: 1 each Gabapentin (Neurontin -) 100 mg PO TID [facility] Last Admin: 09/19/16 06:30 Dose: 100 mg Heparin Sodium (Porcine) (Heparin -) 5,000 unit SQ BID [facility] Last Admin: 09/19/16 10:21 Dose: 5,000 unit Dextrose/Sodium Chloride (D5-1/2ns -) 1,000 mls @ 125 mls/hr IV ASDIR [facility] Last Admin: 09/19/16 11:36 Dose: 125 mls/hr Lisinopril (Prinivil) 5 mg PO DAILY [facility] Last Admin: 09/19/16 10:21 Dose: 5 mg Methylprednisolone Sodium Succinate (Solu-Medrol -) 40 mg IVPB DAILY [facility] Last Admin: 09/19/16 10:22 Dose: 40 mg Metoprolol Tartrate (Lopressor -) 25 mg PO BID [facility] Last Admin: 09/19/16 10:21 Dose: 25 mg Pantoprazole Sodium (Protonix -) 40 mg PO DAILY [facility] Last Admin: 09/19/16 10:21 Dose: 40 mg Zolpidem Tartrate (Ambien -) 5 mg PO HS PRN PRN Reason: INSOMNIA Last Admin: 09/18/16 23:25 Dose: 5 mg - Objective Vital Signs: Vital Signs Temperature 97.7 F 09/19/16 10:00 Pulse Rate 69 09/19/16 10:00 Respiratory Rate 20 09/19/16 10:00 Blood Pressure 123/68 09/19/16 10:00 O2 Sat by Pulse Oximetry (%) 95 09/18/16 21:00 Constitutional: Yes: No Distress Eyes: Yes: Conjunctiva Clear Cardiovascular: Yes: Regular Rate and Rhythm, S1, S2 Respiratory: Yes: CTA Bilaterally Gastrointestinal: Yes: Normal Bowel Sounds, Soft. No: Tenderness Extremities: Yes: Other (+ joint swelling hands bilaterally L >R) Labs: INR, PTT INR 1.23 (0.82-1.09) H 09/17/16 13:31 Assessment/Plan Inflammatory polyarthritis S/P VZV Continue steroids MRI done, official report pending Observe off antibiotics
--- NOTE | 2016-09-19 16:31 | PN ---
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 - has not been out of bed yet also reports was able to sleep all night Vital Signs Period Temp Pulse Resp BP Sys/Miller Pulse Ox Last 24 Hr 97.5 F-99.2 F 52-86 18-20 96-133/56-71 95 neck supple heart reg S1/S2 lung clear bilat Abd soft non tender Ext no edema / no swelling / good ROM 5/5 strenght upper ext / sensory intact spine MRI -- Pending Case discussed with Dr Hinton more consistent with acute arthritis / unlikely will require LP will resume a/c after discussion with Neurology Microbiology 09/17/16 13:31 Blood - Peripheral Venous Blood Culture - Preliminary NO GROWTH OBTAINED AFTER 48 HOURS, INCUBATION TO CONTINUE FOR 3 DAYS. 09/17/16 13:31 Blood - Peripheral Venous Blood Culture - Preliminary NO GROWTH OBTAINED AFTER 48 HOURS, INCUBATION TO CONTINUE FOR 3 DAYS. Active Medications Acetaminophen (Tylenol -) 650 mg PO Q4H PRN PRN Reason: PAIN Last Admin: 09/18/16 04:03 Dose: 650 mg Atorvastatin Calcium (Lipitor -) 20 mg PO HS [facility] Last Admin: 09/18/16 22:01 Dose: 20 mg Benzocaine/Menthol (Cepacol Lozenge -) 1 each MM Q2H PRN PRN Reason: SORE THROAT Last Admin: 09/17/16 17:52 Dose: 1 each Gabapentin (Neurontin -) 100 mg PO TID [facility] Last Admin: 09/19/16 14:23 Dose: 100 mg Heparin Sodium (Porcine) (Heparin -) 5,000 unit SQ BID [facility] Last Admin: 09/19/16 10:21 Dose: 5,000 unit Dextrose/Sodium Chloride (D5-1/2ns -) 1,000 mls @ 125 mls/hr IV ASDIR [facility] Last Admin: 09/19/16 11:36 Dose: 125 mls/hr Lisinopril (Prinivil) 5 mg PO DAILY [facility] Last Admin: 09/19/16 10:21 Dose: 5 mg Methylprednisolone Sodium Succinate (Solu-Medrol -) 40 mg IVPB DAILY [facility] Last Admin: 09/19/16 10:22 Dose: 40 mg Metoprolol Tartrate (Lopressor -) 25 mg PO BID [facility] Last Admin: 09/19/16 10:21 Dose: 25 mg Pantoprazole Sodium (Protonix -) 40 mg PO DAILY [facility] Last Admin: 09/19/16 10:21 Dose: 40 mg Zolpidem Tartrate (Ambien -) 5 mg PO HS PRN PRN Reason: INSOMNIA Last Admin: 09/18/16 23:25 Dose: 5 mg # acute inflammatory process S/P herpes Zoster although unlikely still need to R/O post HSV complications acute process - acute Arthritis - PMR - underlying malignancy also to be considered started on low dose IV steroids / on PPi with significant improvement await lab results await results of MRI # A fib plavix on hold SQ Heparin will start plavix / asa once need for LP discarded # HTN has remained stable on current medications # HLD continued on Statins Problem List - Problems (1) Inflammatory polyarthritis Code(s): M06.4 - INFLAMMATORY POLYARTHROPATHY (2) Herpes zoster complication Code(s): B02.8 - ZOSTER WITH OTHER COMPLICATIONS (3) Myelitis Code(s): G04.91 - MYELITIS, UNSPECIFIED (4) CAD (coronary artery disease) Code(s): I25.10 - ATHSCL HEART DISEASE OF [place] CORONARY ARTERY W/O ANG PCTRS (5) Atrial fibrillation Code(s): I48.91 - UNSPECIFIED ATRIAL FIBRILLATION (6) HTN (hypertension) Code(s): I10 - ESSENTIAL (PRIMARY) HYPERTENSION
[2016-09-19] MEDS ORDERED: PT OWN MED DRAWER 7, Y5N ONE (20:20)
[2016-09-19] MEDS: APIXABAN 5 MG TABLET PO SCH (22:37)
[2016-09-19] MEDS: ATORVASTATIN CA 40 MG TABLET (FP) PO SCH (22:38)
[2016-09-19] MEDS: ZOLPIDEM TARTRATE 5 MG TABLET PO PRN (22:41)
[2016-09-20] MEDS: GABAPENTIN 100 MG CAPSULE (FP) PO SCH ×2 (06:31→14:32)
[2016-09-20 08:22] LABS: BASOPHIL 0.1 % (0-2.0); MCHC 33.9 g/dl (32.0-35.9); MEAN CELL VOLUME 91.5 fl (80-96); MEAN PLT VOLUME 7.8 fl (7.5-11.1); PLATELET COUNT 353 K/MM3 (134-434); RDW 12.6 % (11.9-15.9); WHITE BLOOD COUNT 13.3 K/mm3 (4.0-10.0)
[2016-09-20 08:51] LABS: ALBUMIN 2.5 g/dl (3.4-5.0); ANION GAP 9 (8-16); CALCIUM 8.2 mg/dL (8.5-10.1); CO2 24 mmol/L (21-32); GLUCOSE,RANDOM 141 mg/dL (74-106)
[2016-09-20 08:56] LABS: ALK PHOS 63 U/L (45-117); BILIRUBIN,TOTAL 0.3 mg/dL (0.2-1.0); COCKROFT - GAULT 86.14; SGOT/AST 14 U/L (15-37); SGPT/ALT 23 U/L (12-78); TOT PROT 5.6 g/dl (6.4-8.2)
[2016-09-20] MEDS ORDERED: PT OWN MED DRAWER 7, Y5N ONE ×2 (10:48→11:40)
[2016-09-20] MEDS: PANTOPRAZOLE 40 MG TABLET (FP) PO SCH (10:54)
[2016-09-20] MEDS: APIXABAN 5 MG TABLET PO SCH (10:55)
[2016-09-20] MEDS: methylPREDNISolone NA SUCC 40 MG/1 ML VIAL IVPB SCH (10:55)
[2016-09-20] MEDS: METOPROLOL TARTRATE 25 MG TABLET (FP) PO SCH (10:55)
[2016-09-20] MEDS: LISINOPRIL 5 MG TABLET (FP) PO SCH (10:55)
[2016-09-20] MEDS: DEXTROSE 5%-0.45% SALINE 1,000 ML IV SCH (12:30)
[2016-09-20 13:58] VITALS: BP 124/70; PULSE 74; TEMP 98.3
--- NOTE | 2016-09-20 16:43 | DS ---
Physical Examination Vital Signs: Vital Signs Temperature 98.3 F 09/20/16 13:57 Pulse Rate 74 09/20/16 13:57 Respiratory Rate 20 09/20/16 13:57 Blood Pressure 124/70 09/20/16 13:57 O2 Sat by Pulse Oximetry (%) 98 09/20/16 10:04 Constitutional: Yes: Well Nourished, No Distress, Calm Eyes: Yes: WNL HENT: Yes: WNL Neck: Yes: WNL Cardiovascular: Yes: WNL, Regular Rate and Rhythm Respiratory: Yes: WNL Gastrointestinal: Yes: WNL Renal/: Yes: WNL Breast(s): Yes: WNL Musculoskeletal: Yes: WNL, Other (resolution of joint pain and stiffness) Extremities: Yes: WNL, Other (FROM resolution of gait instability) Edema: No Peripheral Pulses WNL: Yes Integumentary: Yes: WNL Neurological: Yes: WNL, Alert, Oriented ...Motor Strength: WNL Labs: CBC, BMP 09/20/16 07:00 09/20/16 07:00 Discharge Summary Reason For Visit: MUSCLE PAIN Current Active Problems Atrial fibrillation (Acute) CAD (coronary artery disease) (Acute) HTN (hypertension) (Acute) Herpes zoster complication (Acute) Inflammatory polyarthritis (Acute) Myalgia (Acute) Polymyalgia rheumatica (Acute) # acute inflammatory process S/P herpes Zoster although unlikely still need to R/O post HSV complications acute process - acute Arthritis - PMR - underlying malignancy also to be considered started on low dose IV steroids / on PPi with significant improvement no indications of myelitis from scans - case discussed with Rheum and Neuro no indications fro LP to be discharged on 40 mg PO prednisone daily out patient follow up this week # A fib plavix on hold during hospital stay no documented benefit to plavix after 1 yr post stents will change to eliquis 5mg bid for A fib patient will require steroids treatment for unclear length of time -- higher risk of bleed if continued on plavix # HTN has remained stable on current medications will continue out patient meds # HLD continued on Statins Condition: Improved - Instructions Referrals: Lindsay Huston MD [Primary Care Provider] - Disposition: HOME - Home Medications Comprehensive Discharge Medication List: Ambulatory Orders Aspirin [ASA -] 81 mg PO DAILY 09/17/16 Atorvastatin Calcium [Lipitor] 10 mg PO HS 09/17/16 Clopidogrel Bisulfate [Plavix -] 75 mg PO DAILY 09/17/16 Colesevelam HCl [Welchol (Nf)] 3,750 mg PO DAILY 09/17/16 Hydrochlorothiazide [Hctz -] 12.5 mg PO DAILY 09/17/16 Lisinopril [Prinivil] 5 mg PO DAILY 09/17/16 Metoprolol Tartrate [Lopressor -] 25 mg PO BID 09/17/16
[2016-09-21] MEDS ORDERED: predniSONE 20 MG TABLET (UD) PO SCH (10:00)
[2016-09-23 00:07] LABS: A/G RATIO 0.8 (0.7-1.7); ALBUMIN 2.8 g/dL (2.9-4.4); C-ANCA <1:20 titer (Neg:<1:20); GLOBULIN, TOTAL 3.4 g/dL (2.2-3.9); M-SPIKE Not Observed g/dL (Not Observed); MYELOPEROXIDASE ANTIBODY <9.0 U/mL (0.0-9.0); P-ANCA <1:20 titer (Neg:<1:20); PROTEINASE-3 ANTIBODY <3.5 U/mL (0.0-3.5); TOTAL PROTEIN 6.2 g/dL (6.0-8.5)
== END 2016-09-20 17:57 | disposition home or self-care (01) | DRG 554 ==
LOC: JER 11:45 → JERBED 13:52 → J5S 15:40
PROVIDERS: ADMIT Family Medicine; ATTEND Family Medicine
DX: M06.4 Inflammatory polyarthropathy (principal); B02.9 Zoster without complications; I10 Essential (primary) hypertension; E78.00 Pure hypercholesterolemia, unspecified; I25.10 Atherosclerotic heart disease of native coronary artery without angina pectoris; I48.91 Unspecified atrial fibrillation; Z79.01 Long term (current) use of anticoagulants; Z87.891 Personal history of nicotine dependence; M79.1 Myalgia
CPT/HCPCS: 36415; 70450-TC; 71010-TC; 72156-TC; 72158-TC; 80053; 81003; 81015; 82550; 83520; 84155; 84165; 84484; 85025; 85610; 85651; 86038; 86140; 86225; 86256; 86431; 86480; 86850; 86900; 86901; 87040; 93005; 93010; 97116-GP; 97161-GP; 99285-25; J1644